=== PATIENT | female | born 1970 | race Caucasian/White ===

== ENCOUNTER 2023-04-21 14:15 | Outpatient (RCR) | payer OTHER ==
[~2023-04-21 14:15] MED LIST: ATARAX 10MG10 MG/TAB PO; GLUCOTROL10 MG PO; GLUMETZA1000 MG PO; HCTZ 25MG TAB25 MG PO; NEURONTIN300 MG/CAP PO; TAGAMET200 MG PO; ULTRAM 50MG TAB50 MG PO; VICTOZA6 MG/ML SQ; ZYRTEC 10MG10 MG PO
== END 2023-05-03 | disposition home or self-care (01) ==
LOC: WSC
DX: M72.2 Plantar fascial fibromatosis (principal); M76.71 Peroneal tendinitis, right leg; M76.72 Peroneal tendinitis, left leg; M76.821 Posterior tibial tendinitis, right leg; M76.822 Posterior tibial tendinitis, left leg; G63 Polyneuropathy in diseases classified elsewhere; R05.9 Cough, unspecified

== ENCOUNTER → 2023-04-30 | Outpatient (CLI) | payer OTHER | LOC: COL.CARD 10:45 | DX: R05.9 Cough, unspecified (principal); R06.02 Shortness of breath | CPT/HCPCS: J7674 ==

== ENCOUNTER 2023-05-07 15:00 | Outpatient (RCR) | payer OTHER | END 2023-06-03 | disposition home or self-care (01) | LOC: WSPT | DX: M72.2 Plantar fascial fibromatosis (principal); M76.71 Peroneal tendinitis, right leg; M76.72 Peroneal tendinitis, left leg; M76.821 Posterior tibial tendinitis, right leg; M76.822 Posterior tibial tendinitis, left leg; G63 Polyneuropathy in diseases classified elsewhere ==

== ENCOUNTER 2023-07-21 09:00 | Outpatient (RCR) | payer OTHER | END 2023-08-02 | disposition home or self-care (01) | LOC: WSPT | DX: M72.2 Plantar fascial fibromatosis (principal); M76.71 Peroneal tendinitis, right leg; M76.72 Peroneal tendinitis, left leg; M76.821 Posterior tibial tendinitis, right leg; M76.822 Posterior tibial tendinitis, left leg; G63 Polyneuropathy in diseases classified elsewhere ==

== ENCOUNTER → 2023-10-27 | Outpatient (CLI) | payer OTHER | LOC: MC.RAD 10:25 | DX: Z12.31 Encounter for screening mammogram for malignant neoplasm of breast (principal); N63.10 Unspecified lump in the right breast, unspecified quadrant ==